=== PATIENT | female | born 1970 | race Hispanic/Latino ===

== ENCOUNTER → 2019-05-04 | Outpatient (CLI) | payer BC | END | disposition home or self-care (01) | LOC: RAH 12:56 | PROVIDERS: ATTEND Family Medicine | DX: Z12.31 Encounter for screening mammogram for malignant neoplasm of breast (principal); E04.1 Nontoxic single thyroid nodule | CPT/HCPCS: 76536; 77067 ==

== ENCOUNTER → 2022-09-04 | Outpatient (CLI) | payer BC | END | disposition home or self-care (01) | LOC: RAH 13:04 | PROVIDERS: ATTEND Obstetrics & Gynecology | DX: Z12.31 Encounter for screening mammogram for malignant neoplasm of breast (principal) | CPT/HCPCS: 77067 ==

== ENCOUNTER → 2023-09-09 | Outpatient (CLI) | payer BC | END | disposition home or self-care (01) | LOC: RAH 13:21 | PROVIDERS: ATTEND Obstetrics & Gynecology | DX: Z12.31 Encounter for screening mammogram for malignant neoplasm of breast (principal) | CPT/HCPCS: 77067 ==

== ENCOUNTER → 2024-10-05 | Outpatient (CLI) | payer BC ==
--- NOTE | 2024-10-06 09:00 | HMCIMG ---
Exam Type: MAMMO SCREENING BILATERAL Clinical Information: ANNUAL SCREENING Comparison: September 09, 2023 Technique: Bilateral mammogram with CAD was performed with CC and MLO projections. FINDINGS: Breast parenchyma is heterogeneously dense which lowers the sensitivity of the mammographic examination. No dominant mass or suspicious microcalcification identified. There is no nipple retraction or skin thickening. Benign-appearing calcifications are seen. CAD shows no worrisome regions. IMPRESSION: 1. No mammographic signs of malignancy. 2. Routine follow-up recommended. CATEGORY 2: BENIGN FINDINGS Note: A negative x-ray should not delay biopsy if a dominant or clinically suspicious mass is present, since 8-10% of cancers are not identified by mammography. Dense breasts may obscure an underlying neoplasm.
== END | disposition home or self-care (01) ==
LOC: RAH 10:48
PROVIDERS: ATTEND Obstetrics & Gynecology
DX: Z12.31 Encounter for screening mammogram for malignant neoplasm of breast (principal); R92.333 Mammographic heterogeneous density, bilateral breasts
CPT/HCPCS: 77067

== ENCOUNTER → 2025-04-29 | Outpatient (CLI) | payer BC ==
--- NOTE | 2025-04-29 18:22 | HMCIMG ---
Exam: Bone mineral densitometry History: Exam: Bone mineral densitometry History: Osteoporosis screening. 55-year-old female Comparison: No prior studies are available for comparison. Technique: BMD evaluation at the hip and femur were performed. The following BMD values were obtained: Femoral neck: 0.751 g/cm??? corresponding to a T score of -1.0 and a Z score of 0. Total hip: 1.022 g/cm??? corresponding to a T score of 0.5 and a Z score of 1.2. Total spine : 0.873 g/cm??? corresponding to a T score of -1.6 and a Z score of -0.5. 10-year fracture risk: Major osteoporotic fracture 2.8% and hip fracture 0.1% Conclusion 1. The examination above is compatible with osteopenia based upon the WHO classification system. 2. There are no prior studies for comparison.. 3. The patient is at increased fracture risk based upon this examination. Please note the following: * The World Health Organization, WHO classification is assigned to the lowest resultant T score obtained above. * WHO classifications do not apply to premenopausal women, men younger than 50 and children. For these individuals, Z scores above -2.0 are considered normal for age. For these individuals, Z scores less than -2.0 are considered to have low bone density for age. T-scores should not be utilized for these patients. Please correlate clinically as the patient's age and sex may not be available at the time of interpretation. WHO classification for T-scores: (Used for postmenopausal women and men older than 50 years of age). Normal: -1.0 or greater Osteopenia: Between -1.0 and -2.5 Osteoporosis: Less than -2.5 patient age, sex and menstrual status if available. Comparison: No prior studies are available for comparison. Technique: BMD evaluation at the hip and femur were performed. The following BMD values were obtained: Femoral neck: x g/cm??? corresponding to a T score of x and a Z score of x. Total hip: x g/cm??? corresponding to a T score of x and a Z score of x. Total spine : x g/cm??? corresponding to a T score of x and a Z score of x. Conclusion 1. The examination above is compatible with normal bone mineral density based upon the WHO classification system. 2. There are no prior studies for comparison.. 3. The patient is not at increased fracture risk based upon this examination. Please note the following: * The World Health Organization, WHO classification is assigned to the lowest resultant T score obtained above. * WHO classifications do not apply to premenopausal women, men younger than 50 and children. For these individuals, Z scores above -2.0 are considered normal for age. For these individuals, Z scores less than -2.0 are considered to have low bone density for age. T-scores should not be utilized for these patients. Please correlate clinically as the patient's age and sex may not be available at the time of interpretation. WHO classification for T-scores: (Used for postmenopausal women and men older than 50 years of age). Normal: -1.0 or greater Osteopenia: Between -1.0 and -2.5 Osteoporosis: Less than -2.5 /[place]
== END | disposition home or self-care (01) ==
LOC: RAH 14:14
PROVIDERS: ATTEND Internal Medicine Nephrology
DX: Z13.820 Encounter for screening for osteoporosis (principal); Z78.0 Asymptomatic menopausal state
CPT/HCPCS: 77080